=== PATIENT | female | born 1965 | race African-American/Black ===

== ENCOUNTER 2018-12-25 15:00 | Emergency (ER) | payer BC ==
[~2018-12-25] VITALS: Ht 172.7 cm; Wt 81.6 kg
[2018-12-25] MEDS ORDERED: ONDANSETRON HCL/PF 4 MG/2 ML VIAL ONE (15:18)
--- NOTE | 2018-12-25 15:18 | NUR ---
ACUTE ABDOMINAL PAIN, STARTED LAST SATURDAY (WHEN HER MENSTRAUTION STARTED); + HISTORY OF DYSMENORRHEA. PT DISPLAYS FACIAL GRIMACING, GUARDING, RESTLESSNESS, AND CRYING OUT. STATES PAIN 10/10 AND "TIGHT". DENIES , STATES HX OF FIBROID SURGERY. NO OTHER COMPLAINTS AT THIS TIME. IN GOWN, ON MONITOR, READY FOR EVAL.
[2018-12-25] MEDS ORDERED: IV NS 0.9% 1,000 ML BAG IV ONE (15:30)
[2018-12-25] MEDS ORDERED: ONDANSETRON HCL/PF 4 MG/2 ML VIAL IVP ONE (15:30)
[2018-12-25 15:33] LABS: BASOPHILS % (AUTO) 0.3 % (0.0-2.0); HEMATOCRIT 40 % (33-45); HEMOGLOBIN 12.7 g/dL (11.5-14.8); LYMPHOCYTES # (AUTO) 0.7 /CMM (0.8-4.8); LYMPHOCYTES % (AUTO) 5.1 % (20.0-44.0); MEAN CORPUSCULAR HGB CONC 32 g/dl (31.0-36.0); MEAN CORPUSCULAR VOLUME 76 fL (82-100); MONOCYTES # (AUTO) 0.3 /CMM (0.1-1.30); MONOCYTES % (AUTO) 1.9 % (2.0-12.0); NEUTROPHILS # (AUTO) 12.6 /CMM (1.8-8.9); NEUTROPHILS % (AUTO) 92.7 % (43.0-81.0); PLATELET COUNT (AUTO) 291 /CMM (150-450); RED BLOOD CELL COUNT(AUTO) 5.28 MIL/uL (4.0-5.2); WHITE BLOOD COUNT (AUTO) 13.6 K/uL (4.3-11.0)
[2018-12-25] MEDS ORDERED: HYDROMORPHONE 1 MG/1 ML DISP.SYRIN ONE ×2 (15:33→16:00)
[2018-12-25 15:41] LABS: CALCIUM, SERUM 9.5 mg/dL (8.5-10.1); CREATININE 1.1 mg/dL (0.6-1.3); POTASSIUM 3.7 mmol/L (3.5-5.1)
[2018-12-25 15:47] LABS: ALBUMIN 3.9 g/dL (3.4-5.0); BILIRUBIN,DIRECT 0.1 mg/dL (0.0-0.2); BILIRUBIN,TOTAL 0.6 mg/dL (0.2-1.0)
--- NOTE | 2018-12-25 15:50 | NUR ---
HEAD START COORDINATOR AT BEDSIDE
[2018-12-25] MEDS ORDERED: HYDROMORPHONE 1 MG/1 ML DISP.SYRIN IV ONE ×2 (16:00)
--- NOTE | 2018-12-25 17:00 | NUR ---
PT STATES FEELING MUCH BETTER. N/V HAS SUBSIDED AND PAIN IS LESSENED. PROVIDED SPECIMEN CUP FOR URINE SAMPLE
--- NOTE | 2018-12-25 17:13 | NUR ---
URINE COLLECTED AND SENT TO STAT LAB
[2018-12-25] MEDS ORDERED: IV NS 0.9% 250 ML IV ONE (17:14)
[2018-12-25] MEDS ORDERED: CT SWABBABLE VALVE TRANS SET 1 EA INFUS.SET MC ONE (17:14)
[2018-12-25] MEDS ORDERED: IOHEXOL-300 100 ML VIAL IV ONE (17:14)
[2018-12-25 17:18] LABS: APPEARANCE,URINE Slightly Cloudy (CLEAR); BILIRUBIN,URINE Negative (NEGATIVE); BLOOD, URINE Moderate Ery/uL (NEGATIVE); COLOR,URINE Yellow (YELLOW); KETONES,URINE 80 (NEGATIVE); LEUKOCYTE ESTERASE ,URINE Negative (NEGATIVE); NITRITE, URINE Negative (NEGATIVE); PH,URINE 8.5 (5.0-8.0); PROTEIN,URINE Negative (NEGATIVE); UGLUCOSE Negative (NEGATIVE); UROBILINOGEN,URINE 0.2 EU/dL (0.2)
--- NOTE | 2018-12-25 17:29 | NUR ---
PT TAKEN TO RADIOLOGY VIA .
[2018-12-25 17:42] LABS: BACTERIA,URINE Rare /HPF (None Seen); SQUAMOUS EPITHELIAL CELL,UR Few /HPF (None Seen); WBC,URINE NONE SEEN /HPF (0-3)
--- NOTE | 2018-12-25 18:30 | NUR ---
PT GIVEN JUICE AND CRACKERS PER DR PIPER REQUEST
--- NOTE | 2018-12-25 19:11 | NUR ---
Patient does not wish to proceed with medical care recommended by Dr. PIPER. Patient given information related to possible complications, up to and including , which could occur as a result of leaving the hospital at this time. Patient verbalizes understanding of risks involved due to leaving against medical advice. Patient has signed AMA form. Patient discharged to home in stable condition. Written and verbal after care instructions given. Patient verbalizes understanding of instruction. IV removed. Catheter intact and site benign. Pressure and 4x4 applied to site. No bleeding noted.
[2018-12-25 19:13] VITALS: BP 146/87
== END 2018-12-25 19:16 | disposition left against medical advice (07) ==
LOC: ER 15:04
DX: R10.32 Left lower quadrant pain (principal); R11.2 Nausea with vomiting, unspecified; I11.9 Hypertensive heart disease without heart failure; N94.6 Dysmenorrhea, unspecified; D72.829 Elevated white blood cell count, unspecified; Z98.890 Other specified postprocedural states
CPT/HCPCS: 36415; 74177; 76856; 80048; 80076; 81001; 83690; 84484; 84702; 85025; 87077; 87086; 93005; 96361; 96374; 96375; 99284; J1170 ×2; J2405; J7030; J7050; Q9967; 81000-TC